=== PATIENT | male | born 1950 | race Caucasian/White ===

== ENCOUNTER 2019-07-21 14:13 | Observation (INO) | payer MEDICARE ==
[2019-07-21] MEDS ORDERED: Lactated Ringers 1,000 ML IV ONE (14:19)
[2019-07-21] MEDS ORDERED: HYDROmorphone 0.5 MG/0.5 ML Syringe IVPUSH ONE (14:20)
[2019-07-21] MEDS ORDERED: Ketorolac 30 MG/ML SDV IVPUSH ONE (14:22)
[2019-07-21] MEDS ORDERED: diphenhydrAMINE 50 MG/ML SDV IVPUSH ONE (14:23)
[2019-07-21] MEDS ORDERED: Ondansetron 4 MG Tab.DIS PO ONE (14:24)
--- NOTE | 2019-07-21 14:30 | EDM.PDOC ---
ED HPI GENERAL MEDICAL PROBLEM - General Chief Complaint: ENT Problem Stated Complaint: [facility] Time Seen by Provider: 07/21/19 14:15 Source of Information: Reports: Patient, EMS, Old Records History Limitations: Reports: No Limitations - History of Present Illness INITIAL COMMENTS - FREE TEXT/NARRATIVE: 69 yo male that lives alone presents via EMS for R ear pain, dizziness and nausea/vomiting. Sx's began 3 days ago. No fever. No hx of shingles or the vaccine. Had a small amt of crusting in her R ear when he awoke today. Has not been seen for this so far. Onset: Gradual Onset Date: 07/18/19 Duration: Day(s): (3), Constant Location: Reports: Face (R face and R ear) Quality: Reports: Ache Severity: Moderate Improves with: Reports: None Worsens with: Reports: Other (unknown) Context: Reports: Other (See HPI) Associated Symptoms: Reports: Nausea/Vomiting, Rash (R side of face/scalp and ear). 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: Other (see below) (none) - Related Data Allergies Allergy/AdvReac Type Severity Reaction Status Date / Time egg Allergy Mild Swollen Verified 09/30/15 18:39 Tongue pollen extracts Allergy Sneezing Verified 09/30/15 14:01 ragweed pollen Allergy Sneezing Verified 09/30/15 14:01 Home Meds: Home Meds Apixaban [Eliquis] 5 mg PO BID 07/21/19 [History] Diltiazem HCl [Diltiazem 24Hr ER] 120 mg PO DAILY 07/21/19 [History] Omeprazole 20 mg PO BEDTIME 07/21/19 [History] cephALEXin [Cephalexin] 500 mg PO QID #28 capsule 07/21/19 [Rx] predniSONE [Prednisone] 20 mg PO BID #20 tablet 07/21/19 [Rx] Past Medical History Gastrointestinal History: Reports: Other (See Below) Other Gastrointestinal History: hernia Genitourinary History: Reports: Renal Calculus Musculoskeletal History: Reports: Fracture, Other (See Below) Other Musculoskeletal History: Right ankle fx, cartilege removed on right knee. Oncologic (Cancer) History: Reports: Non-Hodgkin's Lymphoma, Squamous Cell Carcinoma, Other (See Below) Other Oncologic History: basal cell carcinoma. - Infectious Disease History Infectious Disease History: Reports: Chicken Pox, Rubella - Past Surgical History Male Surgical History: Reports: Other (See Below) Social & Family History - Family History Family Medical History: Noncontributory - Tobacco Use Smoking Status *Q: Unknown Ever Smoked ED ROS ENT - Review of Systems Review Of Systems: See Below Constitutional: Reports: No Symptoms HEENT: Reports: Ear Discharge (minimal), Ear Pain (right) Respiratory: Reports: No Symptoms Cardiovascular: Reports: No Symptoms GI/Abdominal: Reports: Nausea, Vomiting. Denies: Abdominal Pain : Reports: No Symptoms Musculoskeletal: Reports: No Symptoms Skin: Reports: Rash (R face, scalp and auricle), Erythema Neurological: Reports: Dizziness (vertigo) Psychiatric: Reports: No Symptoms ED EXAM, ENT - Physical Exam Exam: See Below Exam Limited By: No Limitations General Appearance: Alert, WD/WN, Mild Distress Eye Exam: Bilateral Eye: EOMI, Normal Inspection, Nystagmus, PERRL Ears: Hearing Loss (right), Auricular Erythema (right), Auricular Tenderness ( right), Canal Swelling (right). No: Normal External Exam, Normal Canal, Hearing Grossly Normal, Normal TMs, Auricular Ecchymosis Nose: Normal Inspection, No Blood Mouth/Throat: Normal Inspection, Normal Oropharynx Head: Atraumatic, Normocephalic Neck: Normal Inspection Respiratory/Chest: No Respiratory Distress, Lungs Clear, Normal Breath Sounds, No Accessory Muscle Use Cardiovascular: Regular Rate, Rhythm, No Edema GI/Abdominal: Normal Bowel Sounds, Soft, Non-Tender, No Distention Neurological: Alert, Oriented, CN II-XII Intact, Normal Cognition, No Motor/ Sensory Deficits Psychiatric: Normal Affect, Normal Mood Skin: Warm, Dry, Intact, Erythema (R face/scalp and auricle), Rash (zoster-like rash to R side of face, scalp and auricle.), Zoster-Like Rash. No: Normal Color , No Rash, Ecchymosis, Increased Warmth, Lymphangitis, Wound/Incision Course - Vital Signs Last Recorded V/S: Last Vital Signs Temp 35.6 C L 07/21/19 17:19 Pulse 65 07/21/19 17:19 Resp 16 07/21/19 17:19 BP 156/93 H 07/21/19 17:19 Pulse Ox 100 07/21/19 17:19 - Orders/Labs/Meds Orders: Medication Orders Acetaminophen (Tylenol) 650 mg PO Q4H PRN PRN Reason: Pain (Mild 1-3)/fever Apixaban (Eliquis) 5 mg PO BID [facility] Diltiazem HCl (Cardizem Cd) 120 mg PO DAILY [facility] Enoxaparin Sodium (Lovenox) 40 mg SUBCUT BEDTIME [facility] Hydromorphone HCl (Dilaudid) 0.5 mg IVPUSH Q2H PRN PRN Reason: Pain (severe 7-10) Sodium Chloride (Normal Saline) 1,000 mls @ 125 mls/hr IV ASDIRECTED [facility] Last Admin: 07/21/19 17:42 Dose: 125 mls/hr Ondansetron HCl (Zofran) 4 mg IV Q4H PRN PRN Reason: Nausea/Vomiting Oxycodone HCl (Oxycodone) 5 mg PO Q4H PRN PRN Reason: Pain (moderate 4-6) Pantoprazole Sodium (Protonix) 40 mg PO ACBREAKFAST [facility] Polyethylene Glycol (Miralax) 17 gm PO DAILY PRN PRN Reason: Constipation Sodium Chloride (Saline Flush) 10 ml FLUSH ASDIRECTED PRN PRN Reason: Keep Vein Open Valacyclovir HCl (Valtrex) 1,000 mg PO TID [facility] Labs: Laboratory Tests 07/21/19 Range/Units 14:38 Sodium 135 L (140-148) mmol/L Potassium 5.2 (3.6-5.2) mmol/L Chloride 98 L (100-108) mmol/L Carbon Dioxide 23 (21-32) mmol/L Anion Gap 19.2 H (5.0-14.0) mmol/L BUN 23 H D (7-18) mg/dL Creatinine 0.9 (0.8-1.3) mg/dL Est Cr Clr Drug Dosing 73.89 mL/min Estimated GFR (MDRD) > 60 (>60) Glucose 146 H (74-106) mg/dL Calcium 9.2 (8.5-10.1) mg/dL Meds: Medications Generic Name Dose Route Start Last Admin Trade Name Freq PRN Reason Stop Dose Admin Acetaminophen 650 mg 07/21/19 17:19 Tylenol PO Q4H PRN Pain (Mild 1-3)/fever Apixaban 5 mg 07/21/19 21:00 Eliquis PO BID [facility] Diltiazem HCl 120 mg 07/22/19 09:00 Cardizem Cd PO DAILY [facility] Enoxaparin Sodium 40 mg 07/21/19 21:00 Lovenox SUBCUT BEDTIME [facility] Hydromorphone HCl 0.5 mg 07/21/19 17:19 Dilaudid IVPUSH Q2H PRN Pain (severe 7-10) Sodium Chloride 1,000 mls @ 125 mls/hr 07/21/19 17:19 07/21/19 17:42 Normal Saline IV 125 mls/hr ASDIRECTED [facility] Administration Ondansetron HCl 4 mg 07/21/19 17:19 Zofran IV Q4H PRN Nausea/Vomiting Oxycodone HCl 5 mg 07/21/19 17:19 Oxycodone PO Q4H PRN Pain (moderate 4-6) Pantoprazole Sodium 40 mg 07/22/19 07:30 Protonix PO ACBREAKFAST [facility] Polyethylene Glycol 17 gm 07/21/19 17:19 Miralax PO DAILY PRN Constipation Sodium Chloride 10 ml 07/21/19 17:19 Saline Flush FLUSH ASDIRECTED PRN Keep Vein Open Valacyclovir HCl 1,000 mg 07/21/19 21:00 Valtrex PO TID [facility] Discontinued Medications Generic Name Dose Route Start Last Admin Trade Name Freq PRN Reason Stop Dose Admin Diphenhydramine HCl 25 mg 07/21/19 14:23 07/21/19 14:37 Benadryl IVPUSH 07/21/19 14:24 25 mg ONETIME ONE Administration Hydromorphone HCl 0.5 mg 07/21/19 14:20 07/21/19 14:37 Dilaudid IVPUSH 07/21/19 14:21 0.5 mg ONETIME ONE Administration Lactated Ringer's 1,000 mls @ 1,000 mls/hr 07/21/19 14:19 07/21/19 14:43 Ringers, Lactated IV 07/21/19 15:18 1,000 mls/hr BOLUS ONE Administration Ketorolac Tromethamine 30 mg 07/21/19 14:22 07/21/19 14:37 Toradol IVPUSH 07/21/19 14:23 30 mg ONETIME ONE Administration Ondansetron HCl 4 mg 07/21/19 14:24 07/21/19 14:37 Zofran Odt PO 07/21/19 14:25 4 mg ONETIME ONE Administration Valacyclovir HCl 1,000 mg 07/21/19 15:00 07/21/19 14:59 Valtrex PO 1,000 mg DAILY [facility] Administration Departure - Departure Time of Disposition: 17:00 Disposition: Admitted As Inpatient 65 Condition: Fair Clinical Impression: Vertigo Herpes zoster Qualifiers: Herpes zoster complications: with other complications Qualified Code(s): B02.8 - Zoster with other complications Nausea and vomiting Qualifiers: Vomiting type: unspecified Vomiting Intractability: non-intractable Qualified Code(s): R11.2 - Nausea with vomiting, unspecified - Discharge Information *PRESCRIPTION DRUG MONITORING PROGRAM REVIEWED*: Not Applicable *COPY OF PRESCRIPTION DRUG MONITORING REPORT IN PATIENT RONY: Not Applicable Sepsis Event Note - Evaluation Sepsis Screening Result: No Definite Risk - Focused Exam Vital Signs: Vital Signs Temp Pulse Resp BP Pulse Ox 07/21/19 16:26 36.3 C 64 16 125/76 98 07/21/19 14:18 36.1 C 67 18 130/73 100 07/21/19 14:14 36.1 C 67 18 130/73 100 Date Exam was Performed: 07/21/19 Time Exam was Performed: 18:04
[2019-07-21] MEDS ORDERED: valACYclovir 1,000 MG Tab PO SCH (15:00)
--- NOTE | 2019-07-21 16:39 | PCM.HP.2 ---
H&P History of Present Illness - General Date of Service: 07/21/19 Admit Problem/Dx: Admission Diagnosis/Problem Admission Diagnosis/Problem Herpes zoster Source of Information: Patient, Provider, RN Notes Reviewed History Limitations: Reports: No Limitations - History of Present Illness Initial Comments - Free Text/Narative: Mr. Gonzalez is a 69-year-old gentleman who was admitted through the emergency department observation status for management of nausea, vomiting, dehydration secondary to vertigo and herpes zoster. He was feeling well until about 3 days ago when he developed pain and swelling in his right face and forehead. Symptoms progressed over the last 3 days and have been associated with vertigo, nausea, and vomiting. He denies previous history of vertigo does report that there is some swelling of his right ear canal. On evaluation he is felt to have evidence of herpes zoster involving the right face and forehead. He is noted no fevers, chills, or sweats appetite has been adequate. He has a known underlying history of non-Hodgkin's lymphoma, currently in remission status post treatment 3 years ago. - Related Data Allergies/Adverse Reactions: Allergies Allergy/AdvReac Type Severity Reaction Status Date / Time egg Allergy Mild Swollen Verified 09/30/15 18:39 Tongue pollen extracts Allergy Sneezing Verified 09/30/15 14:01 ragweed pollen Allergy Sneezing Verified 09/30/15 14:01 Home Medications: Home Meds Apixaban [Eliquis] 5 mg PO BID 07/21/19 [History] Diltiazem HCl [Diltiazem 24Hr ER] 120 mg PO DAILY 07/21/19 [History] Omeprazole 20 mg PO BEDTIME 07/21/19 [History] cephALEXin [Cephalexin] 500 mg PO QID #28 capsule 07/21/19 [Rx] predniSONE [Prednisone] 20 mg PO BID #20 tablet 07/21/19 [Rx] Past Medical History Gastrointestinal History: Reports: Other (See Below) Other Gastrointestinal History: hernia Genitourinary History: Reports: Renal Calculus Musculoskeletal History: Reports: Fracture, Other (See Below) Other Musculoskeletal History: Right ankle fx, cartilege removed on right knee. Oncologic (Cancer) History: Reports: Non-Hodgkin's Lymphoma, Squamous Cell Carcinoma, Other (See Below) Other Oncologic History: basal cell carcinoma. - Infectious Disease History Infectious Disease History: Reports: Chicken Pox, Rubella - Past Surgical History Male Surgical History: Reports: Other (See Below) Social & Family History - Family History Family Medical History: Noncontributory - Tobacco Use Smoking Status *Q: Unknown Ever Smoked H&P Review of Systems - Review of Systems: Review Of Systems: See Below General: Reports: Malaise, Weakness. Denies: Fever, Chills HEENT: Reports: Other (Right face and forehead pain) Pulmonary: Reports: No Symptoms Cardiovascular: Reports: No Symptoms Gastrointestinal: Reports: No Symptoms Genitourinary: Reports: No Symptoms Musculoskeletal: Reports: No Symptoms Skin: Reports: Other (Erythema, with scattered lesions on the right face and forehead) Exam - Exam Exam: See Below - Vital Signs Vital Signs: Last Vital Signs Temp 97.3 F 07/21/19 16:26 Pulse 64 07/21/19 16:26 Resp 16 07/21/19 16:26 BP 125/76 07/21/19 16:26 Pulse Ox 98 07/21/19 16:26 Weight: 195 lb - Exam Quality Assessment: DVT Prophylaxis General: Alert, Oriented, Cooperative, Moderate Distress HEENT: Conjunctiva Clear, Hearing Intact, Normal Nasal Septum, Posterior Pharynx Clear, Pupils Equal. No: Mucosa Moist & Wolverine Neck: Supple, Trachea Midline, +2 Carotid Pulse wo Bruit Lungs: Clear to Auscultation, Normal Respiratory Effort Cardiovascular: Regular Rate, Normal S1, Normal S2, Irregular Rhythm. No: Systolic Murmur, Diastolic Murmur GI/Abdominal Exam: Soft, Non-Tender, No Organomegaly, No Distention Back Exam: Normal Inspection, Full Range of Motion Extremities: Non-Tender, No Pedal Edema Skin: Other (Erythema of the right face and forehead with scattered vesicular lesions) Neurological: Cranial Nerves Intact, Strength Equal Bilateral, Normal Speech, Normal Tone, Sensation Intact. No: Focal Deficit Neuro Extensive - Mental Status: Alert, Oriented x3, Normal Mood/Affect, Normal Cognition, Memory Intact - Patient Data Lab Results Last 24 hrs: Laboratory Results - last 24 hr 07/21/19 Range/Units 14:38 Sodium 135 L (140-148) mmol/L Potassium 5.2 (3.6-5.2) mmol/L Chloride 98 L (100-108) mmol/L Carbon Dioxide 23 (21-32) mmol/L Anion Gap 19.2 H (5.0-14.0) mmol/L BUN 23 H D (7-18) mg/dL Creatinine 0.9 (0.8-1.3) mg/dL Est Cr Clr Drug Dosing 73.89 mL/min Estimated GFR (MDRD) > 60 (>60) Glucose 146 H (74-106) mg/dL Calcium 9.2 (8.5-10.1) mg/dL Result Diagrams: 07/21/19 14:38 Sepsis Event Note - Evaluation Sepsis Screening Result: No Definite Risk - Focused Exam Vital Signs: Vital Signs Temp Pulse Resp BP Pulse Ox 07/21/19 16:26 97.3 F 64 16 125/76 98 07/21/19 14:18 97.0 F 67 18 130/73 100 07/21/19 14:14 97.0 F 67 18 130/73 100 Date Exam was Performed: 07/21/19 Time Exam was Performed: 17:30 *Q Meaningful Use (ADM) - VTE Risk Assess *Q Each Risk Factor Represents 1 Point: Obesity ( BMI > 25 kg/m2) Total Score 1 Point Risk Factors: 1 Each Risk Factor Represents 2 Points: Age 60 - 74 Years, Malignancy (present or previous) Total Score 2 Point Risk Factors: 4 Each Risk Factor Represents 3 Points: None Total Score 3 Point Risk Factors: 0 Each Risk Factor Represents 5 Points: None Total Score 5 Point Risk Factors: 0 Venous Thromboembolism Risk Factor Score *Q: 5 Problem List Initiated/Reviewed/Updated: Yes Orders Last 24hrs: Active Orders 24 hr Category Date Time Status Patient Status Manage Transfer [TRANSFER] Routine ADT 07/21/19 16:33 Ordered valACYclovir [Valtrex] Med 07/21/19 15:00 Active 1,000 mg PO DAILY Resuscitation Status Routine Resus Stat 07/21/19 16:35 Ordered Medication Orders Valacyclovir HCl (Valtrex) 1,000 mg PO DAILY [facility] Last Admin: 07/21/19 14:59 Dose: 1,000 mg Assessment/Plan Comment:: ASSESSMENT AND PLAN HERPES ZOSTER RIGHT FACE-involvement of the ear, right face and forehead. Erythema and lesions do not cross midline. History of chickenpox as a child, he has not had shingles vaccination -Valtrex 1 g p.o. 3 times daily -Pain medication as needed POSITIONAL VERTIGO-associated with significant imbalance as well as nausea vomiting -Medication for nausea vomiting as needed DEHYDRATION-secondary to nausea and vomiting -IV fluids for hydration HISTORY OF NON-HODGKIN'S LYMPHOMA-currently in remission status post treatment 3 years ago ATRIAL FIBRILLATION -Continue outpatient medical therapy including anticoagulation MAINTENANCE ISSUES -DVT prophylaxis; current anticoagulation should provide adequate DVT prophylaxis -GI prophylaxis; continue outpatient PPI therapy -Faustin catheter; not indicated -Nutrition; regular diet -Nicotine dependence; not required CODE STATUS-FULL CODE ADMISSION STATUS-this patient will be admitted to observation status, expect no more than a one night hospital stay for evaluation and management of problems as outlined above. DISPOSITION-anticipate discharge to home after the hospital stay. PRIMARY CARE PROVIDER- - Mortality Measure Prognosis:: Good
[2019-07-21] MEDS ORDERED: Polyethylene Glycol 3350 Powder 17 GM Packet PO PRN (17:19)
[2019-07-21] MEDS ORDERED: HYDROmorphone 0.5 MG/0.5 ML Syringe IVPUSH PRN (17:19)
[2019-07-21] MEDS ORDERED: Sodium Chloride 0.9% 10 ML Syringe FLUSH PRN (17:19)
[2019-07-21] MEDS ORDERED: Ondansetron 4 MG/2 ML SDV IV PRN (17:19)
[2019-07-21] MEDS: Sodium Chloride 0.9% 1,000 ML IV SCH (17:42)
[2019-07-21] MEDS: oxyCODONE 5 MG Tab PO PRN (20:13)
[2019-07-21] MEDS: valACYclovir 1,000 MG Tab PO SCH (20:56)
[2019-07-21] MEDS: Apixaban 5 MG Tab ** OWN MED PO SCH (20:57)
[2019-07-21] MEDS ORDERED: Enoxaparin 40 MG/0.4 ML Syringe SUBCUT SCH (21:00)
[2019-07-22] MEDS: Sodium Chloride 0.9% 1,000 ML IV SCH ×3 (01:42→17:11)
[2019-07-22] MEDS: oxyCODONE 5 MG Tab PO PRN ×3 (03:38→11:45)
[2019-07-22] MEDS: Pantoprazole 40 MG Tab.CR PO SCH (07:36)
[2019-07-22] MEDS ORDERED: Diltiazem 120 MG Cap.CD PO SCH (09:00)
[2019-07-22] MEDS: valACYclovir 1,000 MG Tab PO SCH ×3 (09:24→20:42)
[2019-07-22] MEDS: Apixaban 5 MG Tab ** OWN MED PO SCH ×2 (09:28→20:43)
[2019-07-22] MEDS ORDERED: Potassium Chloride 20 MEQ Tab.ER PO ONE (11:00)
--- NOTE | 2019-07-22 14:39 | PCM.PN ---
- General Info Date of Service: 07/22/19 Subjective Update: No acute events overnight. Right-sided facial pain and dizziness are slightly better today. He was able to walk to the bathroom and back with assistance. He still is very dizzy, especially when he is up and moving around. Still having a difficult time hearing out of the right ear and feels like there is fluid behind his eardrum. He reports that he feels a fair amount better today but still is very nervous about going home because of his dizziness and unsteadiness on his feet. Functional Status: Reports: Pain Controlled, Tolerating Diet - Review of Systems General: Reports: Weakness HEENT: Reports: Ear Pain - Patient Data Vitals - Most Recent: Last Vital Signs Temp 37.1 C 07/22/19 13:12 Pulse 71 07/22/19 13:12 Resp 16 07/22/19 13:12 BP 119/60 07/22/19 13:12 Pulse Ox 100 07/22/19 13:12 Weight - Most Recent: 88.178 kg I&O - Last 24 Hours: Intake & Output 07/21/19 07/22/19 07/22/19 22:59 06:59 14:59 Intake Total 1548 600 Balance 1548 600 Lab Results Last 24 Hours: Laboratory Results - last 24 hr 07/21/19 07/22/19 Range/Units 14:38 04:00 Sodium 135 L 141 (140-148) mmol/L Potassium 5.2 3.5 L (3.6-5.2) mmol/L Chloride 98 L 104 (100-108) mmol/L Carbon Dioxide 23 26 (21-32) mmol/L Anion Gap 19.2 H 14.5 H (5.0-14.0) mmol/L BUN 23 H D 17 (7-18) mg/dL Creatinine 0.9 0.8 (0.8-1.3) mg/dL Est Cr Clr Drug Dosing 73.89 83.13 mL/min Estimated GFR (MDRD) > 60 > 60 (>60) Glucose 146 H 109 H (74-106) mg/dL Calcium 9.2 7.4 L D (8.5-10.1) mg/dL Med Orders - Current: Current Medications Acetaminophen (Tylenol) 650 mg PO Q4H PRN PRN Reason: Pain (Mild 1-3)/fever Apixaban (Eliquis) 5 mg PO BID [facility] Last Admin: 07/22/19 09:28 Dose: 5 mg Diltiazem HCl (Cardizem Cd) 120 mg PO DAILY [facility] Hydromorphone HCl (Dilaudid) 0.5 mg IVPUSH Q2H PRN PRN Reason: Pain (severe 7-10) Sodium Chloride (Normal Saline) 1,000 mls @ 125 mls/hr IV ASDIRECTED [facility] Last Admin: 07/22/19 09:02 Dose: 125 mls/hr Ondansetron HCl (Zofran) 4 mg IV Q4H PRN PRN Reason: Nausea/Vomiting Last Admin: 07/22/19 09:01 Dose: 4 mg Oxycodone HCl (Oxycodone) 5 mg PO Q4H PRN PRN Reason: Pain (moderate 4-6) Last Admin: 07/22/19 11:45 Dose: 5 mg Pantoprazole Sodium (Protonix) 40 mg PO ACBREAKFAST [facility] Last Admin: 07/22/19 07:36 Dose: 40 mg Polyethylene Glycol (Miralax) 17 gm PO DAILY PRN PRN Reason: Constipation Sodium Chloride (Saline Flush) 10 ml FLUSH ASDIRECTED PRN PRN Reason: Keep Vein Open Valacyclovir HCl (Valtrex) 1,000 mg PO TID [facility] Last Admin: 07/22/19 09:24 Dose: 1,000 mg Discontinued Medications Diltiazem HCl (Cardizem Cd) 120 mg PO DAILY [facility] Last Admin: 07/22/19 09:24 Dose: 120 mg Diphenhydramine HCl (Benadryl) 25 mg IVPUSH ONETIME ONE Stop: 07/21/19 14:24 Last Admin: 07/21/19 14:37 Dose: 25 mg Enoxaparin Sodium (Lovenox) 40 mg SUBCUT BEDTIME [facility] Hydromorphone HCl (Dilaudid) 0.5 mg IVPUSH ONETIME ONE Stop: 07/21/19 14:21 Last Admin: 07/21/19 14:37 Dose: 0.5 mg Lactated Ringer's (Ringers, Lactated) 1,000 mls @ 1,000 mls/hr IV BOLUS ONE Stop: 07/21/19 15:18 Last Admin: 07/21/19 14:43 Dose: 1,000 mls/hr Ketorolac Tromethamine (Toradol) 30 mg IVPUSH ONETIME ONE Stop: 07/21/19 14:23 Last Admin: 07/21/19 14:37 Dose: 30 mg Ondansetron HCl (Zofran Odt) 4 mg PO ONETIME ONE Stop: 07/21/19 14:25 Last Admin: 07/21/19 14:37 Dose: 4 mg Potassium Chloride (Klor-Con M20) 40 meq PO ONETIME ONE Stop: 07/22/19 11:01 Last Admin: 07/22/19 11:45 Dose: 40 meq Valacyclovir HCl (Valtrex) 1,000 mg PO DAILY [facility] Last Admin: 07/21/19 14:59 Dose: 1,000 mg - Exam Quality Assessment: No: Supplemental Oxygen General: Alert, Oriented, Cooperative, No Acute Distress Neck: Supple Cardiovascular: Regular Rate, Regular Rhythm GI/Abdominal Exam: Soft, No Distention Extremities: No Pedal Edema Skin: Warm, Dry, Rash (erythema right side of face. Few vesicles right side of lower lip ) Psy/Mental Status: Alert, Normal Affect Sepsis Event Note - Evaluation Sepsis Screening Result: No Definite Risk - Focused Exam Vital Signs: Vital Signs Temp Pulse Pulse Resp BP BP BP 07/22/19 13:12 37.1 C 71 16 119/60 07/22/19 09:24 60 123/70 07/22/19 07:40 36.3 C 60 12 123/70 07/22/19 03:17 36.4 C 73 16 126/79 Pulse Ox 07/22/19 13:12 100 07/22/19 09:24 07/22/19 07:40 97 07/22/19 03:17 98 Date Exam was Performed: 07/22/19 Time Exam was Performed: 15:52 - Problem List Review Problem List Initiated/Reviewed/Updated: Yes - My Orders Last 24 Hours: My Active Orders 07/22/19 14:45 Sodium Chloride 0.9% [Normal Saline] 1,000 ml IV ASDIRECTED - Plan Plan:: ASSESSMENT AND PLAN HERPES ZOSTER RIGHT FACE-involvement of the ear, right face and forehead. Erythema and lesions do not cross midline. History of chickenpox as a child, he has not had shingles vaccination. Slightly better but still fairly symptomatic. -Valtrex 1 g p.o. 3 times daily x7 days -Pain medication as needed POSITIONAL VERTIGO-associated with significant imbalance as well as nausea vomiting. Better but still very debilitating. -Increase activity as tolerated -Medication for nausea vomiting as needed DEHYDRATION-secondary to nausea and vomiting -Continue gentle IV fluids for hydration HISTORY OF NON-HODGKIN'S LYMPHOMA-currently in remission status post treatment 3 years ago ATRIAL FIBRILLATION -Continue outpatient medical therapy including anticoagulation MAINTENANCE ISSUES -DVT prophylaxis; current anticoagulation should provide adequate DVT prophylaxis -GI prophylaxis; continue outpatient PPI therapy -Faustin catheter; not indicated -Nutrition; regular diet DISPOSITION-anticipate discharge to home after the hospital stay. Anthony Roberts MD
[2019-07-22] MEDS: Acetaminophen 325 MG Tab PO PRN ×2 (17:59→23:05)
[2019-07-23] MEDS: Sodium Chloride 0.9% 1,000 ML IV SCH (05:48)
[2019-07-23] MEDS: Pantoprazole 40 MG Tab.CR PO SCH (08:21)
[2019-07-23] MEDS: Apixaban 5 MG Tab ** OWN MED PO SCH (08:26)
[2019-07-23] MEDS: valACYclovir 1,000 MG Tab PO SCH ×2 (08:26→13:19)
[2019-07-23] MEDS ORDERED: Diltiazem 120 MG Cap.CD (PTOM) PO SCH (09:00)
--- NOTE | 2019-07-23 11:51 | PCM.DCSUM1 ---
Discharge Summary - Hospital Course Brief History: 69-year-old male with history of non-Hodgkin's lymphoma thought to be in remission who presented with right-sided facial pain with a rash as well as nausea, dehydration and dizziness. He was admitted for hydration and management of herpes zoster involving the right side of the face. Diagnosis: Stroke: No - Discharge Data Discharge Date: 07/23/19 Discharge Disposition: Home, Self-Care 01 Condition: Good - Referral to Home Health Primary Care Physician: PCP None - Discharge Diagnosis/Problem(s) (1) Herpes zoster SNOMED Code(s): 6574793 ICD Code: B02.9 - ZOSTER WITHOUT COMPLICATIONS Status: Acute Qualifiers: Herpes zoster complications: with other complications Qualified Code(s): B02.8 - Zoster with other complications (2) Dehydration, moderate SNOMED Code(s): 9277616701928 ICD Code: E86.0 - DEHYDRATION Status: Acute (3) Vertigo SNOMED Code(s): 611736136 ICD Code: R42 - DIZZINESS AND GIDDINESS Status: Acute - Patient Summary/Data Hospital Course: Juan Daniel presented to the emergency room withnausea, vomiting, dizziness and dehydration. He also had a facial rash on the right side. This seem to be consistent with shingles. He was admitted to the hospital because of significant weakness and persistent nausea with vomiting. He was started on valacyclovir to help manage the shingles. He received IV fluids at the time of admission. We also provided symptomatic management for the nausea and dizziness. Over the first 24 hours in the hospital he had moderate improvement but remained weak and unsteady on his feet. He had some low-grade temperature elevations but no significant fevers. Appetite was slightly better by the day after admission. We elected to continue gentle hydration for another day. Over the next 24 hours his appetite improved significantly. Strength has been improving. Dizziness is much better. Facial pain has improved significantly but not resolved. At this point he feels well enough to go home. He is eating and drinking well. He is up and walking around and feels safe on his feet. He has completed 2 of 7 days of treatment for his shingles outbreak. He has not needed pain medication other than acetaminophen. He will have early follow-up with primary care. - Patient Instructions Diet: Regular Diet as Tolerated Activity: As Tolerated Showering/Bathing: May Shower Notify Provider of: Fever, Increased Pain Other/Special Instructions: 1. You were in the hospital for management of shingles involving the right side of your face complicated by pain, dehydration and dizziness. Your condition has been improving with antiviral medication and IV fluids. I recommend that you continue to push fluids to maintain adequate hydration. I also recommend slowly advancing your activity back towards your normal level. To help shorten the duration of the viral infection you should take valacyclovir (Valtrex) 1000 mg 3 times daily for a total of 7 days. Your first dose outside of the hospital will be due around 2 PM today. 2. Continue your other home medications as previously prescribed. - Discharge Plan *PRESCRIPTION DRUG MONITORING PROGRAM REVIEWED*: Not Applicable *COPY OF PRESCRIPTION DRUG MONITORING REPORT IN PATIENT RONY: Not Applicable Prescriptions/Med Rec: valACYclovir [Valtrex] 1,000 mg PO TID #15 tablet Home Medications: Home Meds Apixaban [Eliquis] 5 mg PO BID 07/21/19 [History] Diltiazem HCl [Diltiazem 24Hr ER] 120 mg PO DAILY 07/21/19 [History] Omeprazole 20 mg PO BEDTIME 07/21/19 [History] valACYclovir [Valtrex] 1,000 mg PO TID #15 tablet 07/23/19 [Rx] Oxygen Therapy Mode: Room Air Patient Handouts: Shingles, Valacyclovir caplets Referrals: Leola Loya MD [Ordering Only Provider] - 07/30/19 1:40 pm (Y[facility] APPOINTMENT IS AT [facility] - Discharge Summary/Plan Comment DC Time >30 min.: No - Patient Data Vitals - Most Recent: Last Vital Signs Temp 37.7 C 07/23/19 07:00 Pulse 70 07/23/19 08:25 Resp 16 07/23/19 07:00 BP 136/67 07/23/19 08:25 Pulse Ox 99 07/23/19 07:00 Weight - Most Recent: 87.997 kg I&O - Last 24 hours: Intake & Output 07/22/19 07/23/19 07/23/19 22:59 06:59 14:59 Intake Total 1445 1132 Balance 1445 1132 Med Orders - Current: Current Medications Acetaminophen (Tylenol) 650 mg PO Q4H PRN PRN Reason: Pain (Mild 1-3)/fever Last Admin: 07/22/19 23:05 Dose: 650 mg Apixaban (Eliquis) 5 mg PO BID [facility] Last Admin: 07/23/19 08:26 Dose: 5 mg Diltiazem HCl (Cardizem Cd) 120 mg PO DAILY [facility] Last Admin: 07/23/19 08:25 Dose: 120 mg Hydromorphone HCl (Dilaudid) 0.5 mg IVPUSH Q2H PRN PRN Reason: Pain (severe 7-10) Sodium Chloride (Normal Saline) 1,000 mls @ 75 mls/hr IV ASDIRECTED [facility] Last Admin: 07/23/19 05:48 Dose: 75 mls/hr Ondansetron HCl (Zofran) 4 mg IV Q4H PRN PRN Reason: Nausea/Vomiting Last Admin: 07/22/19 09:01 Dose: 4 mg Oxycodone HCl (Oxycodone) 5 mg PO Q4H PRN PRN Reason: Pain (moderate 4-6) Last Admin: 07/22/19 11:45 Dose: 5 mg Pantoprazole Sodium (Protonix) 40 mg PO ACBREAKFAST [facility] Last Admin: 07/23/19 08:21 Dose: 40 mg Polyethylene Glycol (Miralax) 17 gm PO DAILY PRN PRN Reason: Constipation Sodium Chloride (Saline Flush) 10 ml FLUSH ASDIRECTED PRN PRN Reason: Keep Vein Open Valacyclovir HCl (Valtrex) 1,000 mg PO TID [facility] Last Admin: 07/23/19 08:26 Dose: 1,000 mg Discontinued Medications Diltiazem HCl (Cardizem Cd) 120 mg PO DAILY [facility] Last Admin: 07/22/19 09:24 Dose: 120 mg Diphenhydramine HCl (Benadryl) 25 mg IVPUSH ONETIME ONE Stop: 07/21/19 14:24 Last Admin: 07/21/19 14:37 Dose: 25 mg Enoxaparin Sodium (Lovenox) 40 mg SUBCUT BEDTIME [facility] Hydromorphone HCl (Dilaudid) 0.5 mg IVPUSH ONETIME ONE Stop: 07/21/19 14:21 Last Admin: 07/21/19 14:37 Dose: 0.5 mg Lactated Ringer's (Ringers, Lactated) 1,000 mls @ 1,000 mls/hr IV BOLUS ONE Stop: 07/21/19 15:18 Last Admin: 07/21/19 14:43 Dose: 1,000 mls/hr Sodium Chloride (Normal Saline) 1,000 mls @ 125 mls/hr IV ASDIRECTED [facility] Last Admin: 07/22/19 09:02 Dose: 125 mls/hr Ketorolac Tromethamine (Toradol) 30 mg IVPUSH ONETIME ONE Stop: 07/21/19 14:23 Last Admin: 07/21/19 14:37 Dose: 30 mg Ondansetron HCl (Zofran Odt) 4 mg PO ONETIME ONE Stop: 07/21/19 14:25 Last Admin: 07/21/19 14:37 Dose: 4 mg Potassium Chloride (Klor-Con M20) 40 meq PO ONETIME ONE Stop: 07/22/19 11:01 Last Admin: 07/22/19 11:45 Dose: 40 meq Valacyclovir HCl (Valtrex) 1,000 mg PO DAILY [facility] Last Admin: 07/21/19 14:59 Dose: 1,000 mg
[2019-07-23 12:21] VITALS: BP 124/65; PULSE 71
== END 2019-07-23 13:50 | disposition home or self-care (01) ==
LOC: JP.ED 14:13 → JP.MS 16:33
PROVIDERS: ADMIT Hospitalist; ATTEND Internal Medicine
DX: E86.0 Dehydration (principal); B02.9 Zoster without complications; I48.91 Unspecified atrial fibrillation; F17.200 Nicotine dependence, unspecified, uncomplicated; H81.10 Benign paroxysmal vertigo, unspecified ear; Z79.899 Other long term (current) drug therapy; Z91.012 Allergy to eggs; Z91.018 Allergy to other foods; Z85.72 Personal history of non-Hodgkin lymphomas
CPT/HCPCS: 36415; 80048; 96361; 96374; 96375; 99285; A9270; G0378; J1170; J1200; J1885; J2405; J7030; J7120; 99217; 99218; 99224; 99284